=== PATIENT | female | born 1980 | race Hispanic/Latino ===

== ENCOUNTER 2018-04-21 08:08 | Outpatient (CLI) | payer BC ==
--- NOTE | 2018-04-21 10:14 | ULT ---
SONOGRAM RIGHT BREAST LIMITED: HISTORY: Abnormal baseline mammogram. Right breast mass. FINDINGS: Sonographic evaluation of the inferior medial aspect of the right breast in the region of mammographi c abnormality on outside baseline screening study shows a well-circumscribed slightly lobular anechoi c mass with well-circumscribed margins and posterior acoustic enhancement. It measures up to 0.9 cm length x 0.4 cm depth and correlates with the mammographic abnormality. No sharp angulated margins o r suspicious shadowing. IMPRESSION: Small cyst right breast. BIRADS category 2. Benign findings. Suggest routine mammographic followup . POS: [facility]
== END 2018-04-21 08:09 | disposition home or self-care (01) ==
LOC: BICULT 08:08
PROVIDERS: ATTEND Family Medicine
DX: R92.8 Other abnormal and inconclusive findings on diagnostic imaging of breast (principal); N60.01 Solitary cyst of right breast

== ENCOUNTER 2018-08-21 19:11 | Observation (INO) | payer BC ==
[2018-08-21] MEDS ORDERED: Milk Of Magnesia 30 ML UDCUP ONE ×2 (20:03→20:05)
[2018-08-21] MEDS ORDERED: Lidocaine Viscous Sol 2% 15 ml UD Cup ONE (20:03)
[2018-08-21 20:19] LABS: ALT (SGPT) 91 U/L (8-55); AST (SGOT) 79 U/L (5-34); Albumin 4.3 g/dL (3.5-5.0); Alkaline Phosphatase 82 U/L (40-150); Anion Gap 15 mmol/L (10-20); BUN (Urea Nitrogen) 10 mg/dL (7.0-18.7); Bilirubin, Total 0.5 mg/dL (0.2-1.2); CK (CPK) 87 U/L (29-168); Calc. Creatinine Clearance 0 mL/min (70-130); Calcium 9.3 mg/dL (7.8-10.44); Carbon Dioxide 24 mmol/L (22-29); Chloride 99 mmol/L (98-107); Estimated GFR-MDRD 84; Globulin 3.3 g/dL (2.4-3.5); Glucose 103 mg/dL (70-105); Lipase 21 U/L (8-78); Potassium 3.1 mmol/L (3.5-5.1); Protein, Total 7.6 g/dL (6.0-8.3); Sodium 135 mmol/L (136-145)
[2018-08-21 20:27] LABS: Bilirubin Negative (Negative); Blood, Urine Trace (Negative); Clarity Clear (Clear); Glucose, Urine (Dipstick) Negative (Negative); Leukocyte Negative (Negative); Nitrite Negative (Negative); Pregnancy Test - Urine (BHCG) Negative (Negative); Pregu Control Background? CLEAR/WHITE (CLR/WHITE); Pregu Control Bar Appear? YES (CONTROL BAR); Protein, Urine (Dipstick) 30 mg/dL (Neg-Trace); Specific Gravity 1.015 (1.002-1.036); Specific Gravity, Urine 1.015 (1.005-1.030); Urobilinogen 0.2 mg/dL (0.2-1.0)
[2018-08-21 20:31] LABS: RBC/HPF 0-3 HPF (0-3); WBC/HPF None Seen HPF (0-3)
[2018-08-21 20:32] LABS: Bacteria/HPF 1+ HPF (None Seen)
[2018-08-21] MEDS ORDERED: Ibuprofen 600 MG TAB ONE (20:33)
[2018-08-21] MEDS ORDERED: Ondansetron PF 4 MG/2 ML Vial ONE (20:53)
[2018-08-21] MEDS ORDERED: Ketorolac Tromethamine 30 MG/ML VIAL ONE (20:53)
[2018-08-21] MEDS ORDERED: Morphine 4 MG/ML VIAL ONE (22:05)
--- NOTE | 2018-08-21 22:32 | CT ---
FEXAM: Abdomen and pelvic CT scan with contrast: Enteric contrast not administered precluding reliable assessment of bowel HISTORY: Abdominal pain new onset COMPARISON: None FINDINGS: The visualized lung bases are clear. Liver: Hepatic steatosis Gallbladder:Surgically absent Pancreas:Unremarkable Spleen:Unremarkable. Adrenal glands:Unremarkable. Kidneys:No renal calculus or acute obstruction.No solid or cystic mass. Bowel: Incompletely assessed without enteric contrast. Mild bowel distention is present. Urinary Bladder: The urinary bladder is unremarkable. Adenopathy:No adenopathy within the abdomen or pelvis. Free Air: No free air. Ascites: No ascites. Osseous structures: No acute osseous abnormalities. IMPRESSION: Incomplete assessment of bowel without enteric contrast. There is mild distention of small bowel, not ably at the mid to left lower abdomen. This could relate to a partial obstruction versus ileus. Corre late clinically. This could be further assessed with follow-up exam utilizing enteric contrast, as ne cessary. Hepatic steatosis and prior cholecystectomy.
[2018-08-21] MEDS ORDERED: Potassium Chloride 10 MEQ/100 ML PREMIX BAG ONE (23:15)
[2018-08-22 01:04] VITALS: BMI 33.7
[2018-08-22] MEDS ORDERED: Potassium Chloride 20 MEQ TAB PO SCH ×2 (02:15→04:00)
--- NOTE | 2018-08-22 02:19 | PDOC.FPRHP ---
- History of Present Illness Chief Complaint: abdominal pain History of Present Illness: 37yo F presents as direct admit from [facility] ER for abdominal pain. Pt had onset of epigastric pain with associated nausea and decreased PO intake, vomiting x2 ( clear), pt has BMs regularly and is still passing gas. No fevers or chills. No changes to diet. 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 ED Course: transfer from [facility] ER. CT shows possible early illeus - Allergies/Adverse Reactions Allergies Allergy/AdvReac Type Severity Reaction Status Date / Time minocycline Allergy Severe Verified 08/22/18 01:14 Hives - Home Medications Medication Instructions Recorded Confirmed Type Amitriptyline HCl [Elavil] 10 mg PO HS 08/22/18 08/22/18 History Amlodipine [Norvasc] 5 mg PO DAILY 08/22/18 08/22/18 History Hydrochlorothiazide 25 mg PO DAILY 08/22/18 08/22/18 History Icosapent Ethyl [Vascepa] 2,000 mg PO DAILY 08/22/18 08/22/18 History Thyroid [Eclectic Thyroid] 90 mg PO DAILY 08/22/18 08/22/18 History - History PMHx:HTN, HLS, HypoThyroid, pcos PSHx: cholecystecomy, laproscopic adhesion resection FHx:DM2 Social: denies tobacco and drugs, drinks etoh socially - Review of Systems General: denies: fever/chills, fatigue Eyes: denies: eye pain, vision changes ENT: denies: nasal congestion Respiratory: denies: cough, congestion Cardiovascular: denies: chest pain, palpitation Gastrointestinal: reports: nausea, vomiting, abdominal pain. denies: diarrhea, constipation Genitourinary: denies: incontinence, dysuria Skin: denies: rashes, lesions Musculoskeletal: denies: pain, tenderness Neurological: denies: syncope, seizure Psychological: denies: anxiety, depression - Vital signs BP: [138/89] HR: [111] RR: [18] Tmax: [101.3] Pox: [97]% on [ra] Wt: [81kg] - Physical Exam Constitutional: NAD, well developed HEENT: normocephalic and atraumatic, EOMI, grossly normal vision Neck: supple, trachea midline Chest: no-tender to palpation Heart: RRR, normal S1/S2 Lungs: CTAB, no respiratory distress Abdomen: soft, other (mild epigastric tenderness) Musculoskeletal: normal structure, normal tone Neurological: no focal deficit Skin: no rash/lesions, good turgor Heme/Lymphatic: no unusual bruising or bleeding, no purpura Psychiatric: normal mood and affect, good judgment and insight FMR H&P: Results - Labs Result Diagrams: 08/22/18 03:05 08/22/18 12:49 Lab results: Sodium 135 mmol/L (136-145) L 08/21/18 20:00 Potassium 3.1 mmol/L (3.5-5.1) L 08/21/18 20:00 Chloride 99 mmol/L (98-107) 08/21/18 20:00 Carbon Dioxide 24 mmol/L (22-29) 08/21/18 20:00 BUN 10 mg/dL (7.0-18.7) 08/21/18 20:00 Creatinine 0.77 mg/dL (0.6-1.1) 08/21/18 20:00 Glucose 103 mg/dL (70-105) 08/21/18 20:00 Lactic Acid 2.2 mmol/L (0.5-2.2) 08/21/18 20:00 Calcium 9.3 mg/dL (7.8-10.44) 08/21/18 20:00 Total Bilirubin 0.5 mg/dL (0.2-1.2) 08/21/18 20:00 AST 79 U/L (5-34) H 08/21/18 20:00 ALT 91 U/L (8-55) H 08/21/18 20:00 Alkaline Phosphatase 82 U/L (40-150) 08/21/18 20:00 Creatine Kinase 87 U/L (29-168) 08/21/18 20:00 Serum Total Protein 7.6 g/dL (6.0-8.3) 08/21/18 20:00 Albumin 4.3 g/dL (3.5-5.0) 08/21/18 20:00 Lipase 21 U/L (8-78) 08/21/18 20:00 Urine Ketones Negative mg/dL (Negative) 08/21/18 20:20 Urine Blood Trace (Negative) H 08/21/18 20:20 Urine Nitrite Negative (Negative) 08/21/18 20:20 Ur Leukocyte Esterase Negative (Negative) 08/21/18 20:20 Urine RBC 0-3 HPF (0-3) 08/21/18 20:20 Urine WBC None Seen HPF (0-3) 08/21/18 20:20 Ur Squamous Epith Cells 7-10 HPF (0-3) H 08/21/18 20:20 Urine Bacteria 1+ HPF (None Seen) H 08/21/18 20:20 FMR H&P: A/P - Problem List (1) Fever Current Visit: Yes Status: Acute Code(s): R50.9 - FEVER, UNSPECIFIED (2) Abdominal pain Current Visit: Yes Status: Acute Code(s): R10.9 - UNSPECIFIED ABDOMINAL PAIN (3) Hypokalemia Current Visit: Yes Status: Acute Code(s): E87.6 - HYPOKALEMIA - Plan Fever without clear source A- could be related to GI issues, possible gastroenteritis though not very likely without much nausea and no diarrhea P- CBC, ESR, CRP, Procalcitonin -pain controll with morphine -will continue to monitor. Abdominal pain A- CT/Abdomen shows possible SBO but pt still stooling so unlikely, exam and symptoms inconsistent with ileus/obstruction. P- will continue to monitor. - may try bentyl Elevated transaminases -hepatitis studies and RUQ US Hypokalemia -will replete and recheck BMP this afternoon. FMR H&P: Upper Level - Pertinent history Tracey Connolly is a 37 year old female who was transferred from [facility] ER due to several hour history of abdominal cramping. Took Peptobismol, zofran, hyosciamine and immodium with no relief. She complains of severe mid epigastric abdominal pain since 10 AM. She is not able to tolerate PO. She has not had a bowel movement since this morning. She is still passing gas. - Pertinent findings T: 101.3 P: 111 BP: 139/89 General:alert and oriented; in no distress Heart: mild tachycardia; no murmurs, rubs, or gallops Lungs: clear to auscultation bilaterally Abdomen: normoactive bowel sounds; soft; midepigastric tenderness to palpations - Plan Date/Time: 08/22/189 Sherry Degroot, have evaluated this patient and agree with findings/plan as outlined by internal audit manager resident. Pertinent changes/additions are listed here. Fever without clear source - will order ESR, CRP, Procalcitonin -will continue to monitor. Abdominal pain - CT/Abdomen does not show convincing source of infection. - exam and symptoms inconsistent with ileus/obstruction. - will continue to monitor. - may try bentyl Elevated transaminases - likely related to Fatty liver - will check for hepatitis studies Hypokalemia -will replete and recheck BMP this afternoon. Addendum - Attending - Attending Attestation Date/Time: 08/22/18 [id number] I personally evaluated the patient and discussed the management with Dr. Salazar. I agree with the History, Examination, Assessment and Plan documented above with any addition or exceptions noted below. The patient presents overnight with epigastric abdominal pain that began yesterday associated with nausea and loose stool. 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 She tried otc meds for symptom relief but went to the ER when pain worsened. CT shows possible early sbo/ileus. Pt is trying ice chips. If pain improves will try advancing diet later. Stool studies are pending. Continue IV fluids. Trend lactate.
[2018-08-22] MEDS: Morphine 4 MG/ML VIAL SLOW IVP PRN ×4 (02:44→19:42)
[2018-08-22] MEDS: Ondansetron PF 4 MG/2 ML Vial IVP PRN ×2 (02:50→11:46)
[2018-08-22] MEDS: Lactated Ringer's 1,000 ML IV SCH ×3 (02:54→20:46)
[2018-08-22 03:31] LABS: #Basophils 0.1 thou/uL (0.0-0.2); #Eosinphils 0.1 thou/uL (0.0-0.7); #Monocytes 0.4 thou/uL (0.11-0.59); #Neutrophils 7.7 thou/uL (1.40-6.50); %Basophils 0.6 % (0.0-1.0); %Eosinophils 0.8 % (0.0-10.0); %Lymphocytes 10.9 % (21.0-51.0); %Monocytes 4.2 % (0.0-10.0); %Neutrophils 83.5 % (42.0-75.0); Hemoglobin 12.1 g/dL (12.0-16.0); Mean Corpuscular HGB CONC 33.9 g/dL (32.0-36.0); Mean Corpuscular Hemoglobin 31.9 pg (27.0-31.0); Mean Platelet Volume 7.7 fL (7.4-10.4); Platelet Count 233 thou/uL (130-400); RBC Distribution Width 10.8 % (11.5-14.5); Red Blood Cell (RBC) Count 3.79 mill/uL (4.20-5.40); White Blood Cell (WBC) Count 9.2 thou/uL (4.8-10.8)
[2018-08-22 03:47] LABS: Lactic Acid 2.9 mmol/L (0.5-2.2)
[2018-08-22 03:49] LABS: CRP (Inflammatory) 3.34 mg/dL (= or < 0.5); Magnesium 1.8 mg/dL (1.6-2.6)
[2018-08-22 03:51] LABS: Anion Gap 14 mmol/L (10-20); BUN (Urea Nitrogen) 10 mg/dL (7.0-18.7); Calc. Creatinine Clearance 134 mL/min (70-130); Calcium 8.1 mg/dL (7.8-10.44); Carbon Dioxide 23 mmol/L (22-29); Chloride 100 mmol/L (98-107); Estimated GFR-MDRD 89; Glucose 99 mg/dL (70-105); Sodium 134 mmol/L (136-145)
[2018-08-22 03:54] LABS: Potassium 2.8 mmol/L (3.5-5.1)
[2018-08-22 04:23] LABS: HBCM Index 0.05 S/CO (0-0.79); HIV (1/2) Antibody/Antigen Non-Reactive (NonReactive); HIV 1/2 INDEX 0.09 S/CO (<1.00); Hep A IgM AB Non-Reactive (NonReactive); Hep A IgM S/CO 0.16 S/CO (0-0.79); Hep B Surf Ag Non-Reactive S/CO (NonReactive); Hep C IgG Ab Non-Reactive (NonReactive); Hep C Index 0.16 S/CO (0-0.79); Hepatitis B Core IgM Abs Non-Reactive (NonReactive)
[2018-08-22 04:58] LABS: Syphilis Antibody Nonreactive (Nonreactive); Syphilis Antibody Index 0.04 S/CO (<1.00 Non-Reactive)
[2018-08-22] MEDS: Acetaminophen 500 MG TAB PO PRN (05:26)
[2018-08-22 06:24] LABS: Amphetamine Not Detected (NotDetected); Barbiturates Screen Not Detected (NotDetected); Benzodiazepine Screen Not Detected (NotDetected); Cocaine Metabolite Screen Detected (NotDetected); Medtox Control Line Valid? VALID (VALID); Medtox Reader # READER 4; Methadone Not Detected (NotDetected); Methamphetamine Not Detected (NotDetected); Opiate Screen Detected (NotDetected); Oxycodone Screen Not Detected (NotDetected); Phencyclidine (PCP) Not Detected (NotDetected); THC/Cannabinoid Screen Not Detected (NotDetected); Tricyclic Screen Detected (NotDetected)
[2018-08-22] MEDS: Hydrochlorothiazide 25 MG TAB PO SCH (08:51)
[2018-08-22] MEDS: Pantoprazole 40 MG VIAL IVP SCH (08:51)
[2018-08-22] MEDS: Enoxaparin Sodium 40 MG/0.4 ML SYRINGE SC SCH (08:51)
[2018-08-22] MEDS: Amlodipine 5 MG TAB PO SCH (08:51)
[2018-08-22 13:29] LABS: ALT (SGPT) 101 U/L (8-55); AST (SGOT) 96 U/L (5-34); Albumin 3.8 g/dL (3.5-5.0); Alkaline Phosphatase 80 U/L (40-150); Anion Gap 11 mmol/L (10-20); BUN (Urea Nitrogen) 7 mg/dL (7.0-18.7); Bilirubin, Total 0.4 mg/dL (0.2-1.2); Calc. Creatinine Clearance 142 mL/min (70-130); Calcium 8.5 mg/dL (7.8-10.44); Carbon Dioxide 25 mmol/L (22-29); Chloride 100 mmol/L (98-107); Estimated GFR-MDRD Greater than 90; Globulin 3.1 g/dL (2.4-3.5); Glucose 88 mg/dL (70-105); Potassium 3.1 mmol/L (3.5-5.1); Protein, Total 6.9 g/dL (6.0-8.3); Sodium 133 mmol/L (136-145)
[2018-08-22 16:18] LABS: Lactic Acid 1.2 mmol/L (0.5-2.2)
[2018-08-22] MEDS: Dicyclomine 10 MG CAP PO SCH ×2 (17:31→20:44)
[2018-08-23] MEDS ORDERED: Amitriptyline HCl 10 MG TAB PO SCH ×2 (00:15→21:00)
[2018-08-23] MEDS: Lactated Ringer's 1,000 ML IV SCH ×2 (04:04→17:37)
[2018-08-23 05:22] LABS: #Eosinphils 0.1 thou/uL (0.0-0.7); #Lymphocytes 1.4 thou/uL (1.20-3.40); #Monocytes 0.5 thou/uL (0.11-0.59); %Basophils 0.6 % (0.0-1.0); %Eosinophils 0.9 % (0.0-10.0); %Lymphocytes 20.4 % (21.0-51.0); %Monocytes 7.6 % (0.0-10.0); %Neutrophils 70.4 % (42.0-75.0); Hemoglobin 11.1 g/dL (12.0-16.0); Mean Corpuscular HGB CONC 33.6 g/dL (32.0-36.0); Mean Corpuscular Hemoglobin 31.9 pg (27.0-31.0); Mean Platelet Volume 7.4 fL (7.4-10.4); Platelet Count 200 thou/uL (130-400); RBC Distribution Width 10.7 % (11.5-14.5); Red Blood Cell (RBC) Count 3.49 mill/uL (4.20-5.40); White Blood Cell (WBC) Count 7.1 thou/uL (4.8-10.8)
[2018-08-23 05:48] LABS: ALT (SGPT) 93 U/L (8-55); AST (SGOT) 83 U/L (5-34); Albumin 3.5 g/dL (3.5-5.0); Alkaline Phosphatase 75 U/L (40-150); Anion Gap 11 mmol/L (10-20); BUN (Urea Nitrogen) 5 mg/dL (7.0-18.7); Bilirubin, Total 0.2 mg/dL (0.2-1.2); Calc. Creatinine Clearance 150 mL/min (70-130); Calcium 8.2 mg/dL (7.8-10.44); Carbon Dioxide 25 mmol/L (22-29); Chloride 102 mmol/L (98-107); Estimated GFR-MDRD Greater than 90; Globulin 2.7 g/dL (2.4-3.5); Glucose 96 mg/dL (70-105); Protein, Total 6.2 g/dL (6.0-8.3); Sodium 135 mmol/L (136-145)
[2018-08-23 06:08] LABS: Potassium 2.9 mmol/L (3.5-5.1)
[2018-08-23] MEDS ORDERED: Potassium Chloride 40 MEQ in Premix Bag 1 BAG IVPB SCH (06:15)
--- NOTE | 2018-08-23 06:39 | PDOC.FM ---
- Subjective Subjective: pt resting comfortably in bed, reports significant non bloody diarrhea, abdominal pain improved - Objective Vital Signs & Weight: Vital Signs (12 hours) Temp Pulse Resp BP Pulse Ox 08/23/18 04:03 98.8 F 82 16 106/71 94 L 08/22/18 23:48 99.5 F 89 18 115/73 96 08/22/18 19:47 100.8 F H 92 15 112/72 95 Weight Weight 81.148 kg I&O: 08/21/18 08/22/18 08/23/18 06:59 06:59 06:59 Intake Total 798 2015 Output Total 325 803 Balance 473 1213 Result Diagrams: 08/23/18 05:06 08/23/18 13:51 Phys Exam - Physical Examination Constitutional: NAD HEENT: moist MMs Neck: full ROM Gastrointestinal: soft, no distention, positive bowel sounds mildly tender Musculoskeletal: no edema Neurological: moves all 4 limbs Psychiatric: normal affect Skin: no rash Dx/Plan (1) Transaminitis Code(s): R74.0 - NONSPEC ELEV OF LEVELS OF TRANSAMNS & LACTIC ACID DEHYDRGNSE Status: Acute (2) Abdominal pain Code(s): R10.9 - UNSPECIFIED ABDOMINAL PAIN Status: Acute (3) Fever Code(s): R50.9 - FEVER, UNSPECIFIED Status: Acute (4) Hypokalemia Code(s): E87.6 - HYPOKALEMIA Status: Acute - Plan Plan: Viral gastroenteritis - most likely viral in nature, no WBC elevation - CBC, Procalcitonin wnl, ESR/CRP mildly elevated - LR 120 hr w/ continued diarrhea -will continue to monitor. Abdominal pain - CT/Abdomen shows possible SBO but pt still stooling so unlikely, exam and symptoms inconsistent with ileus/obstruction. - spoke with radiology 08/22, suspsicion for mesenteric ischemia is low - will continue to monitor. - bentyl PRN Elevated transaminases -hepatitis studies neg - RUQ US revealing most likely NAFLD - downtrending Hypokalemia - Most likely 2/2 Diarrhea - will replete and recheck BMP prn code: full ppx: lovenox Dispo: continue IVF rehydration, possible DC later today or tomorrow Addendum - Attending - Attending Attestation Date/Time: 08/23/18 0653 I personally evaluated the patient and discussed the management with Dr. Mcgrath. I agree with the History, Examination, Assessment and Plan documented above with any addition or exceptions noted below. The patient has had greater than 25 episodes of diarrhea in the past 24 hours. Stool studies have been negative. 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 Will continue IV fluids. She is hypokalemic and we will replace potassium and recheck this afternoon as we will likely have to continue replacement with her diarrhea.
[2018-08-23] MEDS: Morphine 2 MG/ML SYRINGE SLOW IVP PRN ×2 (07:15→13:11)
[2018-08-23] MEDS: Potassium Chloride 20 MEQ in Premix Bag 1 BAG IVPB SCH ×2 (09:16→15:11)
[2018-08-23] MEDS: Amlodipine 5 MG TAB PO SCH (09:17)
[2018-08-23] MEDS: Enoxaparin Sodium 40 MG/0.4 ML SYRINGE SC SCH (09:18)
[2018-08-23] MEDS: Hydrochlorothiazide 25 MG TAB PO SCH (09:18)
[2018-08-23] MEDS: Dicyclomine 10 MG CAP PO SCH ×4 (09:18→19:38)
[2018-08-23] MEDS: Pantoprazole 40 MG VIAL IVP SCH (09:22)
[2018-08-23] MEDS: Acetaminophen 500 MG TAB PO PRN ×2 (09:29→19:38)
[2018-08-23 14:32] LABS: Anion Gap 10 mmol/L (10-20); BUN (Urea Nitrogen) 5 mg/dL (7.0-18.7); Calc. Creatinine Clearance 134 mL/min (70-130); Calcium 9.1 mg/dL (7.8-10.44); Carbon Dioxide 28 mmol/L (22-29); Chloride 103 mmol/L (98-107); Estimated GFR-MDRD 89; Glucose 88 mg/dL (70-105); Potassium 3.3 mmol/L (3.5-5.1); Sodium 138 mmol/L (136-145)
[2018-08-23] MEDS ORDERED: Potassium Chloride 20 MEQ TAB PO SCH (14:45)
[2018-08-24] MEDS: Morphine 2 MG/ML SYRINGE SLOW IVP PRN (01:49)
[2018-08-24] MEDS: Lactated Ringer's 1,000 ML IV SCH ×2 (01:50→13:09)
[2018-08-24 05:23] LABS: #Eosinphils 0.1 thou/uL (0.0-0.7); #Lymphocytes 1.8 thou/uL (1.20-3.40); #Monocytes 0.6 thou/uL (0.11-0.59); #Neutrophils 2.4 thou/uL (1.40-6.50); %Basophils 0.9 % (0.0-1.0); %Eosinophils 1.5 % (0.0-10.0); %Lymphocytes 37.4 % (21.0-51.0); %Monocytes 11.6 % (0.0-10.0); %Neutrophils 48.7 % (42.0-75.0); Hemoglobin 11.4 g/dL (12.0-16.0); Mean Corpuscular HGB CONC 33.1 g/dL (32.0-36.0); Mean Corpuscular Hemoglobin 31.5 pg (27.0-31.0); Mean Corpuscular Volume 95.3 fL (78.0-98.0); Mean Platelet Volume 7.5 fL (7.4-10.4); Platelet Count 232 thou/uL (130-400); RBC Distribution Width 10.9 % (11.5-14.5); White Blood Cell (WBC) Count 4.9 thou/uL (4.8-10.8)
--- NOTE | 2018-08-24 06:22 | PDOC.FM ---
- Subjective Subjective: Tracey Connolly seen at bedside this morning. States that she continues to have some diarrhea but it is decreasing in frequency compared to previous days. States she continues to have some abdominal cramping. Denies fever, chills, chest pain, dyspnea, GI bleeding. She attempted to eat this morning and vomited up food. Tolerating minimal po fluids. - Objective MAR Reviewed: Yes Vital Signs & Weight: Vital Signs (12 hours) Temp Pulse Resp BP BP Pulse Ox 08/24/18 05:00 97.2 F L 65 16 105/67 97 08/24/18 01:55 97.4 F L 64 16 108/74 95 08/23/18 18:51 98.6 F 78 16 128/87 98 Weight Weight 81.148 kg I&O: 08/22/18 08/23/18 08/24/18 06:59 06:59 06:59 Intake Total 798 2016 4175 Output Total 119 691 6480 Balance 473 1213 2825 Result Diagrams: 08/24/18 04:59 08/24/18 07:19 Phys Exam - Physical Examination Constitutional: NAD HEENT: moist MMs, sclera anicteric Neck: supple, full ROM Respiratory: no wheezing, no rales, no rhonchi Cardiovascular: RRR, no significant murmur Gastrointestinal: soft, no distention, positive bowel sounds mild diffuse ttp Musculoskeletal: no edema, pulses present Neurological: non-focal, normal sensation, moves all 4 limbs Psychiatric: normal affect, A&O x 3 Skin: no rash, cap refill <2 seconds Dx/Plan (1) Abdominal pain Code(s): R10.9 - UNSPECIFIED ABDOMINAL PAIN Status: Acute (2) Fever Code(s): R50.9 - FEVER, UNSPECIFIED Status: Resolved (3) Hypokalemia Code(s): E87.6 - HYPOKALEMIA Status: Acute (4) Transaminitis Code(s): R74.0 - NONSPEC ELEV OF LEVELS OF TRANSAMNS & LACTIC ACID DEHYDRGNSE Status: Acute - Plan Plan: Viral gastroenteritis - most likely viral in nature, no WBC elevation - CBC, Procalcitonin wnl, ESR normal, elevated CRP - LR 120 hr w/ continued diarrhea - will continue to monitor, likely d/c home today Abdominal pain - CT/Abdomen shows possible SBO but pt still stooling so unlikely, exam and symptoms inconsistent with ileus/obstruction. - spoke with radiology 08/22, suspsicion for mesenteric ischemia is low - will continue to monitor but is improving - bentyl PRN Elevated transaminases - hepatitis studies neg, CT showed hepatic steatosis - RUQ US revealing most likely NAFLD - downtrending Hypokalemia - Most likely 2/2 Diarrhea - will replete code: full ppx: lovenox Dispo: continue IVF rehydration, possible D/c today Addendum - Attending - Attending Attestation Date/Time: 08/24/18 1607 I personally evaluated the patient and discussed the management with Dr. Benedict. I agree with and repeated the History, Examination, Assessment and Plan documented above with any addition or exceptions noted below.
[2018-08-24 07:51] LABS: Anion Gap 12 mmol/L (10-20); BUN (Urea Nitrogen) 5 mg/dL (7.0-18.7); Calc. Creatinine Clearance 158 mL/min (70-130); Calcium 8.2 mg/dL (7.8-10.44); Carbon Dioxide 22 mmol/L (22-29); Chloride 108 mmol/L (98-107); Estimated GFR-MDRD Greater than 90; Glucose 93 mg/dL (70-105); Magnesium 1.9 mg/dL (1.6-2.6); Potassium 3.6 mmol/L (3.5-5.1); Sodium 138 mmol/L (136-145)
[2018-08-24] MEDS ORDERED: Potassium Chloride 20 MEQ TAB PO ONE (08:00)
[2018-08-24] MEDS: Ondansetron PF 4 MG/2 ML Vial IVP PRN ×2 (09:06→14:59)
[2018-08-24] MEDS: Pantoprazole 40 MG VIAL IVP SCH (09:13)
[2018-08-24] MEDS: Amlodipine 5 MG TAB PO SCH (10:15)
[2018-08-24] MEDS: Dicyclomine 10 MG CAP PO SCH ×3 (10:15→19:23)
[2018-08-24] MEDS: Hydrochlorothiazide 25 MG TAB PO SCH (10:16)
[2018-08-24] MEDS: Enoxaparin Sodium 40 MG/0.4 ML SYRINGE SC SCH (10:16)
[2018-08-24 15:48] VITALS: BP 117/85; TEMP 98.2
[2018-08-24] MEDS: ICOSAPENT ETHYL PO SCH (19:24)
--- NOTE | 2018-08-25 06:05 | DIS ---
DATE OF ADMISSION: 08/22/2018 DATE OF DISCHARGE: 08/24/2018 CONSULTS: None. PROCEDURES: 1. Abdominal pelvis CT on 08/21/2018, impression, incomplete assessment of bowel without enteric contrast. There was mild distention of small bowel notably at the mid to left lower abdomen, this clearly related to partial obstruction versus ileus correlate clinically. This is to be further assessed with followup exam utilizing enteric contrast as necessary. Hepatic steatosis and prior cholecystectomy. 2. Blood culture x2 from 08/22/2018, shows no growth at 48 hours. 3. Shiga toxin negative. 4. Clostridium difficile negative. 5. Campylobacter antigen assay negative. 6. Influenza type A and B negative. PRIMARY DIAGNOSIS: Acute gastroenteritis, likely viral. SECONDARY DIAGNOSES: 1. Transaminitis. 2. Fever. 3. Hypokalemia. DISCHARGE MEDICATIONS: Resume home medications includin. Icosapent Ethyl 2000 mg p.o. daily. 2. Hydrochlorothiazide 25 mg p.o. daily. 3. Amlodipine 5 mg p.o. daily. 4. [place] thyroid 90 mg p.o. daily. 5. Amitriptyline HCL 10 mg p.o. at bedtime. New home medications include: 1. Bentyl 10 mg p.o. q.i.d. 2. Zofran 4 mg p.o. q.6 hour p.r.n. HISTORY OF PRESENT ILLNESS/HOSPITAL COURSE: Tracey Connolly is a 37-year-old female, who presents to [facility] [place] as a direct admit from [facility] ER for abdominal pain. The patient had onset of epigastric abdominal pain with associated nausea and decreased p.o. intake with x2 episodes of vomiting, nonbilious, nonbloody. The patient has been having regular bowel movements and was passing gas. She denied any fever, chills, changes to diet. 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 CAT scan showed possible early ileus. No signs of obstruction or signs of ischemia. The patient's initial vital signs included blood pressure of 138/89, heart rate 111, temperature of 101.3, respiratory rate of 18, and pulse ox 97% on room air. Exam on admission was fairly benign other than mild epigastric tenderness to palpation. Initial labs; white blood cell count 9.2, hemoglobin 12.1, hematocrit 35.7, and platelets 233. Sodium 133, potassium 3.1, chloride 100, bicarbonate 25, BUN 7, creatinine 0.69, and glucose of 88. She had elevated AST and ALT at 79 and 91 respectively. Total bilirubin was 0.5, alkaline phosphatase is 82. Urine was negative with the exception of 7 to 10 squamous epithelial cells and 1+ bacteria. The patient was admitted for fever without clear source, likely related to gastroenteritis. Procalcitonin was negative. ESR was negative. CRP was mildly elevated at 3. The patient was given fluid resuscitation. She develops diarrhea during her admission and stool studies were performed, she had negative Shiga toxin, negative Campylobacter, and negative Clostridium difficile. She had multiple approximately greater than 20 bowel movements during her admission, and required supplementation of potassium multiple times. On 08/24/2018, the patient's abdominal pain had resolved especially with the use of Bentyl. She had decreased frequency of diarrhea and she was able to tolerate p.o. without much nausea. The patient on admission also had an elevated transaminases. CT showed hepatic steatosis, but was otherwise unremarkable. LFTs did downtrend slightly during her admission. Overall, the patient's hospital stay was unremarkable. Symptoms did improve with IV fluids and diet was slowly advanced and was well tolerated on the day of discharge. The patient was discharged on 08/24/2018. DISPOSITION: Stable. DISCHARGE INSTRUCTIONS: 1. Location: Home. 2. Diet: As tolerated. 3. Followup: Follow up with primary care provider within 1 week. 4. Activity: No restrictions. Job ID: [id number] MTDD
== END 2018-08-24 17:10 | disposition home or self-care (01) ==
LOC: SCSER 19:11 → 2SW 08-22 00:40
PROVIDERS: ADMIT Family Medicine; ATTEND Family Medicine
DX: K52.9 Noninfective gastroenteritis and colitis, unspecified (principal); R74.0 Nonspecific elevation of levels of transaminase and lactic acid dehydrogenase [LDH]; E87.6 Hypokalemia; I10 Essential (primary) hypertension; E03.9 Hypothyroidism, unspecified; Z79.899 Other long term (current) drug therapy; Z88.1 Allergy status to other antibiotic agents
CPT/HCPCS: 36415; 74177; 80048; 80053; 80074; 80306; 81003; 81015; 81025; 82550; 83605; 83690; 83735; 84145; 84443; 85025; 85652; 86140; 86780; 87040; 87324; 87389; 87449; 87804; 87899; 96361; 96365; 96366; 96372; 96375; 96376; C9113; G0378; J0500; J1650; J1885; J2270; J2405; J3480

== ENCOUNTER 2019-01-28 09:30 | Outpatient (CLI) | payer BC ==
--- NOTE | 2019-01-28 10:47 | ULT ---
ABDOMINAL ULTRASOUND: DATE: 01/28/2019. COMPARISON: None. HISTORY: Upper abdominal pain, elevated liver function tests, history of cholecystectomy. TECHNIQUE: Multiplanar, stacy scale, sonographic imaging of the abdomen provided. FINDINGS: Imaged pancreas unremarkable. Distal body and tail obscured by bowel gas. Imaged IVC and aorta appe ar within normal limits. The hepatic parenchyma is echogenic and heterogeneous suggesting hepatocellular disease, such as hepa tic steatosis. This limits assessment for focal liver lesion and intrahepatic biliary dilatation. T he common bile duct measures 3-4 mm, within normal limits. Gallbladder nonvisualized consistent with a history of cholecystectomy. The right kidney measures 11.5 cm craniocaudal dimension and demonstrates no discrete stone, hydronep hrosis, or mass lesion. The left kidney measures 10.8 cm craniocaudal dimension and demonstrates no evidence for stone, hydronephrosis, or mass. The spleen measures 10 cm in length, within normal limi ts. IMPRESSION: Findings suggesting hepatic steatosis. No biliary dilatation. POS: [facility]
== END 2019-01-28 09:31 | disposition home or self-care (01) ==
LOC: BICULT 09:30
PROVIDERS: ATTEND Family Medicine
DX: R74.8 Abnormal levels of other serum enzymes (principal)
CPT/HCPCS: 76700